=== PATIENT | female | born 1985 | race Caucasian/White ===

== ENCOUNTER 2022-09-06 10:00 | Inpatient (IN) | payer OTHER ==
[2022-09-06] MEDS ORDERED: CITRIC ACID/SODIUM CITRATE 30 ML UNIT-DOSE CUP PO ONE (14:08)
[2022-09-06] MEDS ORDERED: ELECTROLYTE-148 SOLN 1,000 ML IV SCH (14:15)
[2022-09-06 14:26] VITALS: BMI 43.9
[2022-09-06] MEDS ORDERED: morphine SULFATE/PF 1 MG/2 ML (2cc Syringe - QUVA) ONE (14:48)
[2022-09-06] MEDS ORDERED: OXYTOCIN 10 UNITS/ML VIAL ONE (14:48)
[2022-09-06] MEDS ORDERED: PHENYLEPHRINE HCL 10 MG/1 ML SINGLE DOSE VIAL ONE (14:48)
[2022-09-06] MEDS ORDERED: ONDANSETRON 4 MG/2 ML VIAL ONE (14:48)
[2022-09-06] MEDS ORDERED: FENTANYL CITRATE/PF 50 MCG/ML VIAL ONE (14:49)
[2022-09-06] MEDS ORDERED: ceFAZolin SODIUM 1 GM VIAL ONE (15:03)
[2022-09-06] MEDS: OXYTOCIN 20 UNITS in 0.9% NS 20 UNIT/1,000 ML INFUS.BAG IV SCH ×2 (15:42→18:40)
[2022-09-06] MEDS ORDERED: ONDANSETRON 4 MG/2 ML VIAL IVPUSH PRN (16:52)
[2022-09-06 16:59] LABS: CORD BASE EXCESS -3.1 mmol/L (0-2); CORD HCO3 24.2 mmHg (20-29); CORD PCO2 51.3 mmHg (30-78); CORD pH 7.291 (7.14-7.44)
[2022-09-06 17:02] LABS: CORD BASE EXCESS -3.7 mmol/L (0-2); CORD HCO3 24.9 mmHg (20-29); CORD PCO2 59.8 mmHg (30-78); CORD pH 7.238 (7.14-7.44)
[2022-09-06] MEDS ORDERED: ACETAMINOPHEN 325 MG TABLET (FP) PO PRN (17:15)
[2022-09-06] MEDS ORDERED: METHYLERGONOVINE MALEATE 0.2 MG/1 ML AMP IM PRN (17:15)
[2022-09-06] MEDS ORDERED: WITCH HAZEL 50% (TUCKS) 40 PAD/JAR PAD TP PRN (17:27)
[2022-09-06] MEDS ORDERED: IBUPROFEN 800 MG/8 ML IJ IVPB PRN (17:27)
[2022-09-06] MEDS ORDERED: OXYTOCIN 20 UNITS in 0.9% NS 20 UNIT/1,000 ML INFUS.BAG IV ONE (18:23)
[2022-09-07] MEDS ORDERED: oxyCODONE HCL 5 MG TABLET PO PRN ×2 (05:15)
[2022-09-07] MEDS: IBUPROFEN 600 MG TABLET (FP) PO PRN ×4 (06:02→22:26)
[2022-09-07] MEDS: SIMETHICONE 80 MG TAB.CHEW (FP) PO PRN ×2 (06:02→22:26)
[2022-09-07 08:37] LABS: BASO % 0.2 % (0-2.0); EOS % 0.5 % (0-4.5); HEMATOCRIT 29.9 % (32.4-45.2); MCH 28.2 pg (25.7-33.7); MCHC 33.4 g/dl (32.0-36.0); MEAN CELL VOLUME 84.4 fl (80-96); MEAN PLT VOLUME 9.8 fl (7.5-11.1); MONO % 5.8 % (3.8-10.2); NEUT % 82.5 % (42.8-82.8); PLATELET COUNT 146 10^3/uL (134-434); RBC 3.55 M/mm3 (3.60-5.2); WHITE BLOOD COUNT 8.8 K/mm3 (4.0-10.0)
[2022-09-07] MEDS: PRENATAL VITAMINS W/ FOLIC ACID TABLET (FP) PO SCH (10:25)
[2022-09-07] MEDS: ENOXAPARIN NA (PORCINE) 40 MG/0.4 ML DISP.SYRIN SQ SCH (10:25)
[2022-09-07] MEDS ORDERED: BISACODYL 10 MG SUPP.RECT RC PRN (17:15)
[2022-09-07] MEDS: OXYTOCIN 20 UNITS in 0.9% NS 20 UNIT/1,000 ML INFUS.BAG IV SCH (19:33)
[2022-09-07 21:26] VITALS: RESP 18
[2022-09-08] MEDS: IBUPROFEN 600 MG TABLET (FP) PO PRN ×3 (06:13→19:58)
[2022-09-08] MEDS: SIMETHICONE 80 MG TAB.CHEW (FP) PO PRN ×3 (06:13→19:58)
[2022-09-08] MEDS: PRENATAL VITAMINS W/ FOLIC ACID TABLET (FP) PO SCH (09:53)
[2022-09-08] MEDS: ENOXAPARIN NA (PORCINE) 40 MG/0.4 ML DISP.SYRIN SQ SCH (09:54)
[2022-09-08] MEDS: METHIMAZOLE 5 MG TABLET PO SCH (09:54)
[2022-09-08] MEDS: NIFEdipine E.R. 30 MG TABLET PO SCH (15:46)
[2022-09-08] MEDS ORDERED: LABETALOL HCL 200 MG TABLET (FP) PO ONE (22:15)
[2022-09-09 08:28] LABS: BASO % 0.3 % (0-2.0); EOS % 0.8 % (0-4.5); HEMATOCRIT 30.5 % (32.4-45.2); HEMOGLOBIN 10.4 GM/dL (10.7-15.3); LYMPH % 16.3 % (8-40); MCHC 33.9 g/dl (32.0-36.0); MEAN CELL VOLUME 85.4 fl (80-96); MEAN PLT VOLUME 9.9 fl (7.5-11.1); MONO % 5.6 % (3.8-10.2); PLATELET COUNT 202 10^3/uL (134-434); RBC 3.58 M/mm3 (3.60-5.2); RDW 14.6 % (11.6-15.6); WHITE BLOOD COUNT 8.9 K/mm3 (4.0-10.0)
[2022-09-09] MEDS ORDERED: LABETALOL HCL 200 MG TABLET (FP) PO ONE (09:30)
[2022-09-09] MEDS: ENOXAPARIN NA (PORCINE) 40 MG/0.4 ML DISP.SYRIN SQ SCH (09:32)
[2022-09-09] MEDS: NIFEdipine E.R. 30 MG TABLET PO SCH (09:33)
[2022-09-09] MEDS: SIMETHICONE 80 MG TAB.CHEW (FP) PO PRN (09:33)
[2022-09-09] MEDS: PRENATAL VITAMINS W/ FOLIC ACID TABLET (FP) PO SCH (09:33)
[2022-09-09] MEDS: IBUPROFEN 600 MG TABLET (FP) PO PRN (15:58)
[2022-09-09] MEDS: LABETALOL HCL 200 MG TABLET (FP) PO SCH (17:18)
[2022-09-09 23:56] VITALS: TEMP 98
[2022-09-10] MEDS: LABETALOL HCL 200 MG TABLET (FP) PO SCH ×2 (01:31→09:59)
[2022-09-10] MEDS: IBUPROFEN 600 MG TABLET (FP) PO PRN (06:03)
[2022-09-10 09:05] VITALS: BP 152/87; PULSE 82
[2022-09-10] MEDS: PRENATAL VITAMINS W/ FOLIC ACID TABLET (FP) PO SCH (09:59)
[2022-09-10] MEDS: NIFEdipine E.R. 30 MG TABLET PO SCH (09:59)
[2022-09-10] MEDS: METHIMAZOLE 5 MG TABLET PO SCH (09:59)
[2022-09-10] MEDS: ENOXAPARIN NA (PORCINE) 40 MG/0.4 ML DISP.SYRIN SQ SCH (09:59)
== END 2022-09-10 12:39 | disposition home or self-care (01) | DRG 788 ==
LOC: JLDR 13:01 → J3W 19:28
PROVIDERS: ADMIT Obstetrics & Gynecology; ATTEND Obstetrics & Gynecology
PROC: 10D00Z1 Extraction of Products of Conception, Low, Open Approach (ICD-10-PCS; principal; 2022-09-06)
DX: O10.92 Unspecified pre-existing hypertension complicating childbirth (principal); O99.284 Endocrine, nutritional and metabolic diseases complicating childbirth; E05.90 Thyrotoxicosis, unspecified without thyrotoxic crisis or storm; O99.214 Obesity complicating childbirth; E66.01 Morbid (severe) obesity due to excess calories; Z3A.37 37 weeks gestation of pregnancy; Z37.0 Single live birth
CPT/HCPCS: 36415; 36600; 82803; 85025; 86850; 86900; 86901; 88307-TC

== ENCOUNTER 2023-11-14 06:00 | Day surgery (SDC) | payer OTHER ==
[2023-11-10 08:54] VITALS: BMI 40.7
[2023-11-14] MEDS ORDERED: LIDOCAINE HCL/PF 2% SDV 5ML VIAL ONE (12:46)
[2023-11-14] MEDS ORDERED: FENTANYL CITRATE/PF 50 MCG/ML VIAL ONE (12:46)
[2023-11-14] MEDS ORDERED: MIDAZOLAM HCL 2 MG/2 ML SINGLE DOSE VIAL ONE (12:46)
[2023-11-14] MEDS ORDERED: PROPOFOL 20 ML ONE (12:46)
[2023-11-14] MEDS ORDERED: ceFAZolin SODIUM 1 GM VIAL ONE (13:14)
[2023-11-14] MEDS ORDERED: ONDANSETRON 4 MG/2 ML VIAL ONE (13:14)
[2023-11-14] MEDS ORDERED: DEXAMETHASONE SOD PHOSPHATE 4 MG/1 ML VIAL ONE (13:14)
[2023-11-14] MEDS ORDERED: KETOROLAC TROMETHAMINE 30 MG/1 ML VIAL ONE (13:14)
[2023-11-14] MEDS ORDERED: PROMETHAZINE HCL 25 MG/1 ML VIAL IVPB PRN (13:41)
[2023-11-14] MEDS ORDERED: ONDANSETRON 4 MG/2 ML VIAL IVPUSH PRN (13:41)
[2023-11-14] MEDS ORDERED: oxyCODONE HCL 5 MG TABLET PO PRN ×2 (13:41)
[2023-11-14] MEDS ORDERED: ACETAMINOPHEN INJECTION 100 ML IVPB ONE (13:45)
[2023-11-14] MEDS ORDERED: LACTATED RINGERS SOLUTION 1,000 ML IV SCH (13:45)
[2023-11-14] MEDS: ACETAMINOPHEN 1000 MG/100 ML BAG IVPB ONE (14:02)
[2023-11-14 15:11] VITALS: TEMP 97.3
[2023-11-14 18:05] VITALS: BP 133/77; PULSE 78; RESP 18
== END 2023-11-14 18:22 | disposition home or self-care (01) ==
LOC: JASU-SURG 06:00
PROVIDERS: ATTEND Obstetrics & Gynecology
PROC: 10D17ZZ Extraction of Products of Conception, Retained, Via Natural or Artificial Opening (ICD-10-PCS; principal; 2023-11-14 11:30)
DX: O00.80 Other ectopic pregnancy without intrauterine pregnancy (principal); O02.81 Inappropriate change in quantitative human chorionic gonadotropin (hCG) in early pregnancy
CPT/HCPCS: 36415; 76998-TC; 81025; 84702; 88305-TC; 94760; J0131